=== PATIENT | female | born 1950 | race Caucasian/White ===

== ENCOUNTER 2016-08-05 11:02 | Emergency (ER) | payer MEDICARE ==
[~2016-08-05] VITALS: Ht 157.5 cm; Wt 65.0 kg
[~2016-08-05 11:02] MED LIST: ALBU1.25 NEB; ASPI-496 PO; CEFD300C2 PO; FLUT1DIS IH; LACT1CAP24 PO; LOSA25TA5 PO; MORP30TA81 PO; OMEP-110 PO; PARO40TA45 PO; PRED10TA PO
[2016-08-05 11:04] VITALS: BP 143/82
[2016-08-05] MEDS ORDERED: IBUPROFEN 200 MG TABLET PO ONE (12:00)
[2016-08-05] MEDS ORDERED: HYDROcodone/APAP 5/325 TABLET PO ONE (12:00)
[2016-08-05] MEDS ORDERED: IBUPROFEN 200 MG TABLET ONE (12:37)
[2016-08-05] MEDS ORDERED: HYDROcodone/APAP 5/325 TABLET ONE (12:37)
== END 2016-08-05 12:57 | disposition home or self-care (01) ==
LOC: ED 12:54
DX: S62.345A Nondisplaced fracture of base of fourth metacarpal bone, left hand, initial encounter for closed fracture (principal); S62.347A Nondisplaced fracture of base of fifth metacarpal bone, left hand, initial encounter for closed fracture; S22.31XA Fracture of one rib, right side, initial encounter for closed fracture; S60.221A Contusion of right hand, initial encounter; M19.042 Primary osteoarthritis, left hand; L03.114 Cellulitis of left upper limb; J44.9 Chronic obstructive pulmonary disease, unspecified; K21.9 Gastro-esophageal reflux disease without esophagitis; I10 Essential (primary) hypertension; G89.29 Other chronic pain; G62.9 Polyneuropathy, unspecified; F32.9 Major depressive disorder, single episode, unspecified; W18.30XA Fall on same level, unspecified, initial encounter; Y93.01 Activity, walking, marching and hiking; Y99.8 Other external cause status; Y92.89 Other specified places as the place of occurrence of the external cause
CPT/HCPCS: 29125; 99284

== ENCOUNTER 2016-11-02 17:14 | Emergency (ER) | payer MEDICARE ==
[~2016-11-02] VITALS: Ht 157.5 cm; Wt 52.2 kg
[~2016-11-02 17:14] MED LIST changes: -CEFD300C2 PO; +CEFD300C37 PO
[2016-11-02] MEDS ORDERED: SODIUM CHLORIDE FLUSH 10ML SYR IVF ONE (17:30)
[2016-11-02] MEDS ORDERED: SODIUM CHLORIDE 0.9% 1,000ML IVBOLUS ONE (17:30)
[2016-11-02 19:36] VITALS: BP 109/61
== END 2016-11-02 19:38 | disposition home or self-care (01) ==
LOC: ED 19:32
DX: S63.501A Unspecified sprain of right wrist, initial encounter (principal); I10 Essential (primary) hypertension; J44.9 Chronic obstructive pulmonary disease, unspecified; K21.9 Gastro-esophageal reflux disease without esophagitis; W01.0XXA Fall on same level from slipping, tripping and stumbling without subsequent striking against object, initial encounter; Y93.89 Activity, other specified; Y92.89 Other specified places as the place of occurrence of the external cause; Y99.9 Unspecified external cause status
CPT/HCPCS: 29125; 71010; 99284

== ENCOUNTER 2018-02-24 16:06 | Emergency (ER) | payer MEDICARE ==
[~2018-02-24] VITALS: Ht 160 cm; Wt 78.0 kg
[~2018-02-24 16:06] MED LIST changes: -LOSA25TA5 PO; +LOSA25TA6 PO; -PARO40TA45 PO; +PARO40TA61 PO
[2018-02-24] MEDS ORDERED: OXYcodone/APAP 5/325MG TABLET ONE (16:48)
[2018-02-24] MEDS ORDERED: OXYcodone/APAP 5/325MG TABLET PO ONE (17:00)
[2018-02-24 18:16] VITALS: BP 126/78
== END 2018-02-24 18:37 | disposition home or self-care (01) ==
LOC: ED 18:05
DX: S16.1XXA Strain of muscle, fascia and tendon at neck level, initial encounter (principal); J44.9 Chronic obstructive pulmonary disease, unspecified; I10 Essential (primary) hypertension; F32.9 Major depressive disorder, single episode, unspecified; W01.0XXA Fall on same level from slipping, tripping and stumbling without subsequent striking against object, initial encounter; Y93.89 Activity, other specified; Y92.89 Other specified places as the place of occurrence of the external cause; Y99.8 Other external cause status
CPT/HCPCS: 70450; 71250; 72125; 99284

== ENCOUNTER 2019-09-19 14:55 | Emergency (ER) | payer MEDICARE ==
[~2019-09-19] VITALS: Ht 160 cm; Wt 84.1 kg
[~2019-09-19 14:55] MED LIST changes: +LOSA25TA25 PO; -LOSA25TA6 PO
[2019-09-19 15:02] VITALS: BP 146/90
[2019-09-19 15:43] LABS: BASOPHILS # (AUTO) 0.02 x10^3/uL (0-0.1); BASOPHILS % (AUTO) 0 % (0-1); EOSINOPHILS # (AUTO) 0.08 x10^3/uL (0-0.4); EOSINOPHILS % (AUTO) 1 % (1-7); LYMPHOCYTES # (AUTO) 1.19 x10^3/uL (1-3.4); LYMPHOCYTES % (AUTO) 13 % (22-44); MD NO; MEAN CORPUSCULAR HEMOGLOBIN 31.4 pg (27.0-34.8); MEAN CORPUSCULAR HGB CONC 33.9 g/dL (32.4-35.8); MEAN CORPUSCULAR VOLUME 92.6 fL (80-100); MEAN PLATELET VOLUME 7.7 fL (7.4-10.4); MONOCYTES # (AUTO) 0.49 x10^3/uL (0.2-0.8); MONOCYTES % (AUTO) 5 % (2-9); NEUTROPHILS # (AUTO) 7.47 x10^3/uL (1.8-6.8); NEUTROPHILS % (AUTO) 81 % (42-75); PLATELET COUNT 225 x10^3/uL (130-400); RED BLOOD COUNT 4.71 x10^6/uL (3.82-5.3); RED CELL DISTRIBUTION WIDTH 12.2 % (9.6-15.2)
[2019-09-19 15:54] LABS: ALANINE AMINOTRANSFERASE 26 U/L (12-78); ALBUMIN 3.8 g/dL (3.4-5.0); ANION GAP 5 mmol/L (5-15); CALCIUM 9.2 mg/dL (8.5-10.1); CHLORIDE 106 mmol/L (98-107); CREATININE 0.89 mg/dL (0.55-1.02)
[2019-09-19 15:56] LABS: ALKALINE PHOSPHATASE 104 U/L (45-117); BILIRUBIN,TOTAL 0.9 mg/dL (0.2-1.0); TOTAL PROTEIN 8.2 g/dL (6.4-8.2)
[2019-09-19] MEDS ORDERED: HYDROcodone/APAP 5/325 TABLET ONE (16:14)
[2019-09-19 16:23] LABS: MICROSCOPIC INDICATED
[2019-09-19 16:30] LABS: CLUE CELLS NONE SEEN (NONE SEEN); WET PREP WBCS FEW (FEW)
[2019-09-19] MEDS ORDERED: HYDROcodone/APAP 5/325 TABLET PO ONE (16:30)
== END 2019-09-19 17:26 | disposition home or self-care (01) ==
LOC: ED 15:25
DX: N30.00 Acute cystitis without hematuria (principal); N81.10 Cystocele, unspecified; I10 Essential (primary) hypertension; J44.9 Chronic obstructive pulmonary disease, unspecified; Z90.49 Acquired absence of other specified parts of digestive tract
CPT/HCPCS: 36415; 80053; 81001; 85025; 87086; 87210; 87808; 99283

== ENCOUNTER 2019-09-21 16:33 | Emergency (ER) | payer MEDICARE ==
[~2019-09-21] VITALS: Ht 160 cm; Wt 83.0 kg
--- NOTE | 2019-09-21 17:33 | NUR ---
ASSISTANCE TO BEDSIDE COMMODE
--- NOTE | 2019-09-21 18:38 | NUR ---
ER MD AMARO AT BEDSIDE FOR EVALUATION
[2019-09-21 18:40] VITALS: BP 138/77
[2019-09-21] MEDS ORDERED: DICYCLOMINE 20 MG TABLET ONE (18:43)
--- NOTE | 2019-09-21 18:48 | NUR ---
REPORT RECEIVED FROM RADHA CARR. PLAN OF CARE DISCUSSED
[2019-09-21] MEDS ORDERED: DICYCLOMINE 20 MG TABLET PO ONE (19:00)
--- NOTE | 2019-09-21 19:07 | NUR ---
Patient given discharge instructions and they have confirmed that they understand the instructions. Patient ambulatory with steady gait in room. Wheeled to discharge, family member here for safe transportation
== END 2019-09-21 19:24 | disposition home or self-care (01) ==
LOC: ED 18:30
DX: N30.90 Cystitis, unspecified without hematuria (principal); N81.10 Cystocele, unspecified; I10 Essential (primary) hypertension; K21.9 Gastro-esophageal reflux disease without esophagitis; J44.9 Chronic obstructive pulmonary disease, unspecified; M19.90 Unspecified osteoarthritis, unspecified site; G89.29 Other chronic pain; Z90.49 Acquired absence of other specified parts of digestive tract
CPT/HCPCS: 99283